=== PATIENT | male | born 1980 | race African-American/Black ===

== ENCOUNTER 2018-02-22 11:55 | Emergency (ER) | payer SELFPAY ==
[~2018-02-22] VITALS: Ht 188 cm; Wt 94.8 kg
[2018-02-22] MEDS ORDERED: SODIUM CHLORIDE 0.9% 1,000 ML IVB ONE (12:21)
[2018-02-22] MEDS ORDERED: PANTOPRAZOLE 40 MG/10 ML VIAL IV ONE (12:30)
[2018-02-22] MEDS ORDERED: LORazepam 2MG/ML-1ML VIAL IV ONE (12:30)
[2018-02-22 12:31] LABS: Hematocrit 39.2 % (41.0-53.0); Hemoglobin 13.1 g/dL (13.5-17.5); Mean Corpuscular Hgb Conc. 33.3 g/dL (32.0-36.0); Mean Corpuscular Volume 87.2 fL (80.0-100.0); Platelet Count (auto) 165 10^3/uL (140-450); Red Cell Distribution Width 13.7 % (11.8-14.3); White Blood Cell 3.6 10^3/uL (4.4-10.8)
[2018-02-22 12:36] LABS: Basophils % (manual) 0 (0.0-2.0); Blast Cells 0; Metamyelocytes % 0; Myelocytes % 0; Promyelocytes % 0
[2018-02-22 12:50] VITALS: BP 145/83
[2018-02-22 12:58] LABS: Alanine Aminotransferase 20 U/L (16-61); Albumin 3.2 g/dL (3.4-5.0); Anion Gap 8 (5-15); Aspartate Aminotransferase 20 U/L (15-37); BUN/Creatinine Ratio 8.9; Blood Urea Nitrogen 10 mg/dL (7-18); Calcium 8.6 mg/dL (8.5-10.1); Carbon Dioxide 27 mmol/L (21-32); Chloride 99 mmol/L (98-107); GFR African American 95 mL/min; GFR Non-African American 78 mL/min; Glucose 120 mg/dL (74-106); Magnesium 2.1 mg/dL (1.6-2.6); Potassium 3.9 mmol/L (3.5-5.1); Sodium 134 mmol/L (136-145)
[2018-02-22 13:02] LABS: Alkaline Phosphatase 77 U/L (45-117); Bilirubin, Total 0.5 mg/dL (0.2-1.0); Total Protein 9.2 g/dL (6.4-8.2)
[2018-02-22 13:41] LABS: Band Neutrophils % (manual) 4; Lymphocytes % (manual) 17 (10.0-50.0); Monocytes % (manual) 11 (0-12)
[2018-02-22 13:42] LABS: Eosinophils % (manual) 28 (0-7); Reactive Lymphocytes 2
== END 2018-02-22 16:09 | disposition home or self-care (01) ==
LOC: ER 11:55
DX: R00.2 Palpitations (principal); F15.10 Other stimulant abuse, uncomplicated; I10 Essential (primary) hypertension; J45.909 Unspecified asthma, uncomplicated; F17.210 Nicotine dependence, cigarettes, uncomplicated; F12.10 Cannabis abuse, uncomplicated
CPT/HCPCS: 36415; 80053; 83735; 84484; 85007; 85027; 93005; 94761; 96374; 99285; C9113; J2060